=== PATIENT | male | born 1955 | race Caucasian/White ===

== ENCOUNTER 2017-09-17 11:11 | Emergency (ER) | payer MEDICARE ==
[~2017-09-17] VITALS: Ht 188 cm; Wt 98.6 kg
[2017-09-17 11:14] VITALS: BP 125/76; TEMP 97.1
[2017-09-17 12:17] LABS: HEMATOCRIT 40.5 % (42.0-52.0); MEAN CELL VOLUME 89 fl (80.0-100.0); MEAN CORPUSCULAR HEMOGLOBIN 31 pg (27.0-31.0); MEAN CORPUSCULAR HGB CONC 35 g/dl (33.0-37.0); MEAN PLATELET VOLUME 9.9 fl (7.4-10.4); PLATELET COUNT 275 K/mm3 (130-400); RED BLOOD COUNT 4.55 M/mm3 (4.20-5.60); REDCELL DISTRIBUTION WIDTH-CV 13.5 % (11.5-14.5)
[2017-09-17 12:27] LABS: ALBUMIN 3.7 gm/dL (3.5-5.0); BILIRUBIN,TOTAL 0.7 mg/dL (0.0-1.0); CALCIUM 9.4 mg/dL (8.4-10.2); CREATININE, serum 0.58 mg/dL (0.66-1.25); POTASSIUM 3.7 mmol/L (3.4-5.0)
[2017-09-17 12:29] LABS: BAND 2 % (0-10); EOSINOPHIL 2 % (0-4); LYMPHOCYTE 13 % (20.0-51.0); NEUTROPHILS 79 % (42.0-75.2); PLATELET ESTIMATE NORMAL (NORMAL)
[2017-09-17 12:40] LABS: ERYTHROCYTE SEDIMENTATION RATE 16 mm/hr (0-30)
[2017-09-17] MEDS ORDERED: DOXYCYCLINE 10100 MG PO (13:05)
[2017-09-17] MEDS ORDERED: PREDNISONE10 MG PO (13:05)
[2017-09-17 13:16] VITALS: PULSE 76
== END 2017-09-17 13:16 | disposition home or self-care (01) ==
LOC: COL.ER 11:11
PROVIDERS: Family Medicine
DX: T63.301A Toxic effect of unspecified spider venom, accidental (unintentional), initial encounter (principal); R21 Rash and other nonspecific skin eruption; I10 Essential (primary) hypertension; Z87.891 Personal history of nicotine dependence

== ENCOUNTER → 2019-09-27 | Outpatient (CLI) | payer MEDICARE ==
[~2019-09-27] MED LIST: DOXYCYCLINE 10100 MG PO; PREDNISONE10 MG PO
== END ==
LOC: COL.RAD 08:57
DX: M16.12 Unilateral primary osteoarthritis, left hip (principal)
CPT/HCPCS: J3301; Q9967

== ENCOUNTER → 2020-02-19 | Outpatient (CLI) | payer MEDICARE | LOC: COL.RAD 12:31 | DX: M25.552 Pain in left hip (principal) | CPT/HCPCS: J3301; Q9967 ==